=== PATIENT | male | born 1970 | race African-American/Black ===

== ENCOUNTER 2016-06-03 09:12 | Inpatient (IN) | payer OTHER ==
[2016-06-03 09:30] VITALS: BMI 25.7
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
[2016-06-03] MEDS ORDERED: P-EPHED 60MG/TRIPROLIDI 2.5MG TABLET PO PRN (12:11)
[2016-06-03] MEDS ORDERED: ACETAMINOPHEN 325 MG TABLET (FP) PO PRN (12:11)
[2016-06-03] MEDS ORDERED: hydrOXYzine PAMOATE 25 MG CAPSULE (FP) PO PRN (12:11)
[2016-06-03] MEDS ORDERED: LOPERAMIDE HCL 2 MG CAPSULE PO PRN (12:11)
[2016-06-03] MEDS ORDERED: MAGNESIUM CITRATE 300 ML BOTTLE PO PRN (12:11)
[2016-06-03] MEDS ORDERED: MENTHOL/PHENOL 1 EACH UD MM PRN (12:11)
[2016-06-03] MEDS ORDERED: MAG HYDROX/AL HYDROX/SIMETH 30 ML UNIT-DOSE CUP PO PRN (12:11)
[2016-06-03] MEDS ORDERED: chlordiazePOXIDE HCL 25 MG CAPSULE PO PRN (12:11)
[2016-06-03] MEDS ORDERED: MAGNESIUM HYDROX 2400MG/30ML ORAL SUSPENSION 30 ML CUP PO PRN (12:11)
[2016-06-03] MEDS ORDERED: guaiFENesin/D-METHORPHAN HB 10 ML UNIT-DOSE CUPS PO PRN (12:11)
[2016-06-03] MEDS ORDERED: diphenhydrAMINE HCL 50 MG CAPSULE PO PRN (12:11)
[2016-06-03] MEDS ORDERED: IBUPROFEN 400 MG TABLET (FP) PO PRN (12:11)
[2016-06-03] MEDS ORDERED: NAPROXEN 500 MG TABLET (FP) PO PRN (12:14)
[2016-06-03] MEDS ORDERED: chlordiazePOXIDE HCL 25 MG CAPSULE PO ONE (12:21)
[2016-06-03 16:05] LABS: URINE APPEARANCE CLEAR; URINE BLOOD NEGATIVE (NEGATIVE); URINE COLOR AMBER; URINE GLUCOSE (UA) NEGATIVE (NEGATIVE); URINE KETONE TRACE (NEGATIVE); URINE LEUK ESTERASE NEGATIVE (NEGATIVE); URINE NITRITE NEGATIVE (NEGATIVE); URINE UROBILINOGEN 4.0 E.U/dl E.U./dl (0.2-1.0)
[2016-06-03 16:14] LABS: URINE PROTEIN 1+ (NEGATIVE)
--- NOTE | 2016-06-03 16:33 | EKG ---
Test Reason : Blood Pressure : / mmHG Vent. Rate : 092 BPM Atrial Rate : 092 BPM P-R Int : 178 ms QRS Dur : 086 ms QT Int : 344 ms P-R-T Axes : 060 053 037 degrees QTc Int : 425 ms NORMAL SINUS RHYTHM MODERATE VOLTAGE CRITERIA FOR LVH, MAY BE NORMAL VARIANT BORDERLINE ECG NO PREVIOUS ECGS AVAILABLE Confirmed by KIA CHRISTIANSON, MENDEZ ([id number]) on 06/03/2016 4:33:14 PM Referred By: Misha Barbosa Confirmed By:MENDEZ ADAM MD
[2016-06-03 16:53] LABS: URINE BACTERIA RARE /hpf (NONE SEEN); URINE MUCUS RARE; URINE RBC 8 /hpf (0-3); URINE WBC <1 /hpf (3-5)
[2016-06-03] MEDS: chlordiazePOXIDE HCL 25 MG CAPSULE PO SCH ×2 (17:52→22:18)
[2016-06-03] MEDS ORDERED: NAPROXEN 500 MG TABLET (FP) PO SCH (22:00)
[2016-06-03] MEDS: NAPROXEN 500 MG TABLET (FP) PO PRN (22:18)
[2016-06-03] MEDS: THIAMINE HCL 100 MG TABLET (FP) PO SCH (22:18)
[2016-06-04] MEDS: chlordiazePOXIDE HCL 25 MG CAPSULE PO SCH ×4 (05:19→22:05)
[2016-06-04] MEDS: PRENATAL VITAMINS W/ FOLIC ACID TABLET (FP) PO SCH (10:05)
[2016-06-04 10:26] LABS: MCHC 32.4 g/dl (32.0-35.9); MEAN CELL VOLUME 89.5 fl (80-96); MEAN PLT VOLUME 11.2 fl (7.5-11.1); PLATELET COUNT 138 K/MM3 (134-434); RDW 15.8 % (11.9-15.9); WHITE BLOOD COUNT 8.9 K/mm3 (4.0-10.0)
[2016-06-04 11:14] LABS: ALBUMIN 4.4 g/dl (3.4-5.0); ALK PHOS 115 U/L (45-117); ANION GAP 11 (8-16); BILIRUBIN,TOTAL 0.7 mg/dL (0.2-1.0); CALCIUM 9.9 mg/dL (8.5-10.1); CO2 27 mmol/L (21-32); CREATININE 0.7 mg/dL (0.7-1.3); GLUCOSE,RANDOM 85 mg/dL (74-106); SGOT/AST 95 U/L (15-37); SGPT/ALT 74 U/L (12-78); TOT PROT 9.2 g/dl (6.4-8.2)
--- NOTE | 2016-06-04 11:23 | PN ---
S CIWA - CIWA Score Nausea/Vomitin-No Nausea/No Vomiting Muscle Tremors: 3 Anxiety: 4-Mod. Anxious/Guarded Agitation: 3 Paroxysmal Sweats: 3 Orientation: 0-Oriented Tacttile Disturbances: 0-None Auditory Disturbances: 0-None Visual Disturbances: 0-None Headache: 0-None Present CIWA-Ar Total Score: 13 BHS Progress Note (SOAP) Subjective: ANXIETY,TREMORS,INTERRUPTED SLEEP,SWEATING,RESTLESS. Objective: 06/04/16 11:22 Vital Signs - 8 hr 06/04/16 06/04/16 06/04/16 03:30 06:10 09:27 Temperature 97.6 F 98.9 F Pulse Rate 87 91 H Respiratory 18 18 18 Rate Blood Pressure 116/76 108/74 Laboratory Tests 06/03/16 06/04/16 06/04/16 14:00 06:00 06:00 WBC 8.9 RBC 4.61 Hgb 13.4 Hct 41.2 MCV 89.5 MCHC 32.4 RDW 15.8 Plt Count 138 MPV 11.2 H Sodium 137 Potassium 3.5 Chloride 99 Carbon Dioxide 27 Anion Gap 11 BUN 11 Creatinine 0.7 Creat Clearance w eGFR > 60 Random Glucose 85 Calcium 9.9 Total Bilirubin 0.7 AST 95 H ALT 74 Alkaline Phosphatase 115 Total Protein 9.2 H Albumin 4.4 Urine Color Lana Urine Appearance Clear Urine pH 5.0 Ur Specific [place] 1.030 Urine Protein 1+ H Urine Glucose (UA) Negative Urine Ketones Trace H Urine Blood Negative Urine Nitrite Negative Urine Bilirubin 2.0 Urine Urobilinogen 4.0 e.u/dl Ur Leukocyte Esterase Negative Urine RBC 8 Urine WBC <1 Ur Epithelial Cells Rare Urine Bacteria Rare Urine Mucus Rare LABS NOTED Assessment: 06/04/16 11:23 WITHDRAWAL SX. Plan: CONTINUE DETOX
[2016-06-04 12:34] LABS: SICKLE CELL SCREEN NEGATIVE (NEGATIVE)
[2016-06-04] MEDS: THIAMINE HCL 100 MG TABLET (FP) PO SCH (22:05)
[2016-06-05] MEDS: chlordiazePOXIDE HCL 25 MG CAPSULE PO SCH ×2 (06:15→10:07)
[2016-06-05] MEDS: PRENATAL VITAMINS W/ FOLIC ACID TABLET (FP) PO SCH (10:07)
--- NOTE | 2016-06-05 10:25 | PN ---
S CIWA - CIWA Score Nausea/Vomitin Muscle Tremors: 3 Anxiety: 2 Agitation: 2 Paroxysmal Sweats: 1-Minimal Palms Moist Orientation: 0-Oriented Tacttile Disturbances: 0-None Auditory Disturbances: 0-None Visual Disturbances: 0-None Headache: 2-Mild CIWA-Ar Total Score: 12 S Progress Note (SOAP) Objective: 06/05/16 10:25 Vital Signs - 24 hr 06/04/16 06/04/16 06/04/16 13:04 17:26 22:01 Temperature 96.7 F L 98.4 F 98.3 F Pulse Rate 89 83 85 Respiratory 20 18 19 Rate Blood Pressure 106/74 106/67 103/75 06/05/16 06/05/16 06/05/16 00:19 06:28 09:24 Temperature 98.3 F 98.1 F Pulse Rate 79 85 Respiratory 18 18 18 Rate Blood Pressure 105/77 109/72 Laboratory Tests 06/03/16 06/04/16 06/04/16 14:00 06:00 06:00 WBC 8.9 RBC 4.61 Hgb 13.4 Hct 41.2 MCV 89.5 MCHC 32.4 RDW 15.8 Plt Count 138 MPV 11.2 H Sickle Cell Screen Negative Sodium 137 Potassium 3.5 Chloride 99 Carbon Dioxide 27 Anion Gap 11 BUN 11 Creatinine 0.7 Creat Clearance w eGFR > 60 Random Glucose 85 Calcium 9.9 Total Bilirubin 0.7 AST 95 H ALT 74 Alkaline Phosphatase 115 Total Protein 9.2 H Albumin 4.4 Urine Color Lana Urine Appearance Clear Urine pH 5.0 Ur Specific [place] 1.030 Urine Protein 1+ H Urine Glucose (UA) Negative Urine Ketones Trace H Urine Blood Negative Urine Nitrite Negative Urine Bilirubin 2.0 Urine Urobilinogen 4.0 e.u/dl Ur Leukocyte Esterase Negative Urine RBC 8 Urine WBC <1 Ur Epithelial Cells Rare Urine Bacteria Rare Urine Mucus Rare RPR Titer 06/04/16 06:00 WBC RBC Hgb Hct MCV MCHC RDW Plt Count MPV Sickle Cell Screen Sodium Potassium Chloride Carbon Dioxide Anion Gap BUN Creatinine Creat Clearance w eGFR Random Glucose Calcium Total Bilirubin AST ALT Alkaline Phosphatase Total Protein Albumin Urine Color Urine Appearance Urine pH Ur Specific [place] Urine Protein Urine Glucose (UA) Urine Ketones Urine Blood Urine Nitrite Urine Bilirubin Urine Urobilinogen Ur Leukocyte Esterase Urine RBC Urine WBC Ur Epithelial Cells Urine Bacteria Urine Mucus RPR Titer Nonreactive Assessment: 06/05/16 10:25 ongoing withdrawal Plan: continue detox protocol
[2016-06-05] MEDS: chlordiazePOXIDE 5 MG CAPSULE PO SCH ×2 (17:14→22:06)
[2016-06-05] MEDS: NAPROXEN 500 MG TABLET (FP) PO PRN (17:17)
[2016-06-05] MEDS: THIAMINE HCL 100 MG TABLET (FP) PO SCH (22:06)
[2016-06-06] MEDS: chlordiazePOXIDE 5 MG CAPSULE PO SCH ×2 (05:24→10:08)
[2016-06-06] MEDS: PRENATAL VITAMINS W/ FOLIC ACID TABLET (FP) PO SCH (10:08)
--- NOTE | 2016-06-06 13:38 | PN ---
BHS Progress Note (SOAP) Subjective: Restless, anxious, nausea, interrupted sleep Objective: 06/06/16 13:35 Last Vital Signs Temp Pulse Resp BP Pulse Ox 96.4 F L 83 20 111/83 06/06/16 13:31 06/06/16 13:31 06/06/16 13:31 06/06/16 13:31 Laboratory Tests 06/03/16 06/04/16 06/04/16 14:00 06:00 06:00 WBC 8.9 RBC 4.61 Hgb 13.4 Hct 41.2 MCV 89.5 MCHC 32.4 RDW 15.8 Plt Count 138 MPV 11.2 H Sickle Cell Screen Negative Sodium 137 Potassium 3.5 Chloride 99 Carbon Dioxide 27 Anion Gap 11 BUN 11 Creatinine 0.7 Creat Clearance w eGFR > 60 Random Glucose 85 Calcium 9.9 Total Bilirubin 0.7 AST 95 H ALT 74 Alkaline Phosphatase 115 Total Protein 9.2 H Albumin 4.4 Urine Color Lana Urine Appearance Clear Urine pH 5.0 Ur Specific [place] 1.030 Urine Protein 1+ H Urine Glucose (UA) Negative Urine Ketones Trace H Urine Blood Negative Urine Nitrite Negative Urine Bilirubin 2.0 Urine Urobilinogen 4.0 e.u/dl Ur Leukocyte Esterase Negative Urine RBC 8 Urine WBC <1 Ur Epithelial Cells Rare Urine Bacteria Rare Urine Mucus Rare RPR Titer 06/04/16 06:00 WBC RBC Hgb Hct MCV MCHC RDW Plt Count MPV Sickle Cell Screen Sodium Potassium Chloride Carbon Dioxide Anion Gap BUN Creatinine Creat Clearance w eGFR Random Glucose Calcium Total Bilirubin AST ALT Alkaline Phosphatase Total Protein Albumin Urine Color Urine Appearance Urine pH Ur Specific [place] Urine Protein Urine Glucose (UA) Urine Ketones Urine Blood Urine Nitrite Urine Bilirubin Urine Urobilinogen Ur Leukocyte Esterase Urine RBC Urine WBC Ur Epithelial Cells Urine Bacteria Urine Mucus RPR Titer Nonreactive Labs noted: UA 1+ protein Assessment: 06/06/16 13:37 Withdrawal symptoms Noted with Proteinuria Plan: Continue detox Proteinuria: encouraged to drink more water, repeat UA
[2016-06-06] MEDS: chlordiazePOXIDE HCL 10 MG CAPSULE PO SCH ×2 (17:17→22:08)
[2016-06-06] MEDS: NAPROXEN 500 MG TABLET (FP) PO PRN (17:18)
[2016-06-06 17:38] LABS: URINE APPEARANCE CLEAR; URINE BILIRUBIN NEGATIVE (NEGATIVE); URINE COLOR LTYELLOW; URINE GLUCOSE (UA) NEGATIVE (NEGATIVE); URINE KETONE NEGATIVE (NEGATIVE); URINE LEUK ESTERASE NEGATIVE (NEGATIVE); URINE NITRITE NEGATIVE (NEGATIVE); URINE PROTEIN NEGATIVE (NEGATIVE); URINE UROBILINOGEN NEGATIVE E.U./dl (0.2-1.0)
[2016-06-06 17:39] LABS: URINE BLOOD 1+ (NEGATIVE)
[2016-06-06 17:45] LABS: URINE MUCUS RARE; URINE RBC 4 /hpf (0-3); URINE WBC <1 /hpf (3-5)
[2016-06-06] MEDS: THIAMINE HCL 100 MG TABLET (FP) PO SCH (22:08)
[2016-06-07] MEDS: chlordiazePOXIDE HCL 10 MG CAPSULE PO SCH (05:33)
[2016-06-07] MEDS: NAPROXEN 500 MG TABLET (FP) PO PRN (05:34)
[2016-06-07 06:34] VITALS: BP 109/79; PULSE 77; TEMP 97.6
[2016-06-07] MEDS: PRENATAL VITAMINS W/ FOLIC ACID TABLET (FP) PO SCH (09:13)
--- NOTE | 2016-06-07 09:55 | DS ---
[facility] Summary Admission Date: 06/03/16 Discharge Date: 06/07/16 - History Present History: Alcohol Dependence Pertinent Past History: Denies - Physical Exam Results Vital Signs: Vital Signs Temperature 97.6 F 06/07/16 06:33 Pulse Rate 77 06/07/16 06:33 Respiratory Rate 16 06/07/16 06:33 Blood Pressure 109/79 06/07/16 06:33 O2 Sat by Pulse Oximetry (%) Pertinent Admission Physical Exam Findings: Withdrawal Symptoms Laboratory Last Values WBC 8.9 K/mm3 (4.0-10.0) 06/04/16 06:00 RBC 4.61 M/mm3 (4.00-5.60) 06/04/16 06:00 Hgb 13.4 GM/dL (11.7-16.9) 06/04/16 06:00 Hct 41.2 % (35.4-49) 06/04/16 06:00 MCV 89.5 fl (80-96) 06/04/16 06:00 MCHC 32.4 g/dl (32.0-35.9) 06/04/16 06:00 RDW 15.8 % (11.9-15.9) 06/04/16 06:00 Plt Count 138 K/MM3 (134-434) 06/04/16 06:00 MPV 11.2 fl (7.5-11.1) H 06/04/16 06:00 Sickle Cell Screen Negative (NEGATIVE) 06/04/16 06:00 Sodium 137 mmol/L (136-145) 06/04/16 06:00 Potassium 3.5 mmol/L (3.5-5.1) 06/04/16 06:00 Chloride 99 mmol/L (98-107) 06/04/16 06:00 Carbon Dioxide 27 mmol/L (21-32) 06/04/16 06:00 Anion Gap 11 (8-16) 06/04/16 06:00 BUN 11 mg/dL (7-18) 06/04/16 06:00 Creatinine 0.7 mg/dL (0.7-1.3) 06/04/16 06:00 Creat Clearance w eGFR > 60 (>60) 06/04/16 06:00 Random Glucose 85 mg/dL (74-106) 06/04/16 06:00 Calcium 9.9 mg/dL (8.5-10.1) 06/04/16 06:00 Total Bilirubin 0.7 mg/dL (0.2-1.0) 06/04/16 06:00 AST 95 U/L (15-37) H 06/04/16 06:00 ALT 74 U/L (12-78) 06/04/16 06:00 Alkaline Phosphatase 115 U/L (45-117) 06/04/16 06:00 Total Protein 9.2 g/dl (6.4-8.2) H 06/04/16 06:00 Albumin 4.4 g/dl (3.4-5.0) 06/04/16 06:00 Urine Color [place] 06/06/16 11:00 Urine Appearance Clear 06/06/16 11:00 Urine pH 6.0 (5.0-8.0) 06/06/16 11:00 Ur Specific [place] 1.017 (1.001-1.035) 06/06/16 11:00 Urine Protein Negative (NEGATIVE) 06/06/16 11:00 Urine Glucose (UA) Negative (NEGATIVE) 06/06/16 11:00 Urine Ketones Negative (NEGATIVE) 06/06/16 11:00 Urine Blood 1+ (NEGATIVE) H 06/06/16 11:00 Urine Nitrite Negative (NEGATIVE) 06/06/16 11:00 Urine Bilirubin Negative (NEGATIVE) 06/06/16 11:00 Urine Urobilinogen Negative E.U./dl (0.2-1.0) 06/06/16 11:00 Ur Leukocyte Esterase Negative (NEGATIVE) 06/06/16 11:00 Urine RBC 4 /hpf (0-3) 06/06/16 11:00 Urine WBC <1 /hpf (3-5) 06/06/16 11:00 Ur Epithelial Cells Rare /hpf (FEW) 06/03/16 14:00 Urine Bacteria Rare /hpf (NONE SEEN) 06/03/16 14:00 Urine Mucus Rare 06/06/16 11:00 RPR Titer Nonreactive (NONREACTIVE) 06/04/16 06:00 labs noted - Treatment Hospital Course: Detox Protocol Followed, Detoxed Safely, Responded well, Discharged Condition Good Patient has Accepted a Rehab Referral to: Declined - Medication Discharge Medications: Ambulatory Orders Naproxen [Naprosyn -] 500 mg PO PRN PRN 06/03/16 - Diagnosis (1) Alcohol dependence with uncomplicated withdrawal Current Visit: Yes Status: Acute - AMA Did Patient Leave Against Medical Advice: No
== END 2016-06-07 09:32 | disposition home or self-care (01) | DRG 897 ==
LOC: YASAS 09:12 → Y3N 11:38
PROVIDERS: ADMIT Internal Medicine; ATTEND Internal Medicine
PROC: HZ2ZZZZ Detoxification Services for Substance Abuse Treatment (ICD-10-PCS; principal; 2016-06-03)
DX: F10.230 Alcohol dependence with withdrawal, uncomplicated (principal); R80.9 Proteinuria, unspecified; R26.2 Difficulty in walking, not elsewhere classified
CPT/HCPCS: 36415; 71020-TC; 80053; 81003; 81015; 85027; 85660; 86593; 93005; 93010

== ENCOUNTER 2020-05-27 12:18 | Inpatient (IN) | payer OTHER ==
[2020-05-27 14:38] VITALS: BMI 25.9
[2020-05-27] MEDS ORDERED: ACETAMINOPHEN 325 MG TABLET (FP) PO PRN ×2 (14:38)
[2020-05-27] MEDS ORDERED: MAGNESIUM CITRATE 300 ML BOTTLE PO PRN (14:38)
[2020-05-27] MEDS ORDERED: NAPROXEN 500 MG TABLET PO PRN (14:38)
[2020-05-27] MEDS ORDERED: MAGNESIUM HYDROX 2400MG/30ML ORAL SUSPENSION 30 ML CUP PO PRN (14:38)
[2020-05-27] MEDS ORDERED: NICOTINE POLACRILEX 2 MG GUM BUC PRN (14:38)
[2020-05-27] MEDS ORDERED: IBUPROFEN 400 MG TABLET (FP) PO PRN (14:38)
[2020-05-27] MEDS ORDERED: METHOCARBAMOL 500 MG TABLET PO PRN (14:38)
[2020-05-27] MEDS ORDERED: ONDANSETRON *ODT* 4 MG TABLET SL PRN (14:38)
[2020-05-27] MEDS ORDERED: MENTHOL/PHENOL 1 EACH UD MM PRN (14:38)
[2020-05-27] MEDS ORDERED: BISMUTH SUBSALICYLATE 262 MG/15 ML BTL PO PRN (14:38)
[2020-05-27] MEDS ORDERED: chlordiazePOXIDE HCL 25 MG CAPSULE PO PRN (14:38)
[2020-05-27] MEDS ORDERED: MAG HYDROX/AL HYDROX/SIMETH 30 ML UNIT-DOSE CUP PO PRN (14:38)
[2020-05-27] MEDS: chlordiazePOXIDE HCL 25 MG CAPSULE PO SCH ×2 (17:37→22:19)
[2020-05-27] MEDS: hydrOXYzine PAMOATE 25 MG CAPSULE (FP) PO SCH ×2 (17:37→22:19)
[2020-05-27 19:26] LABS: HEMATOCRIT 43.4 % (35.4-49); HEMOGLOBIN 14.6 GM/dL (11.7-16.9); MCH 31.1 pg (25.7-33.7); MCHC 33.6 g/dl (32.0-35.9); MEAN CELL VOLUME 92.8 fl (80-96); MEAN PLT VOLUME 8.9 fl (7.5-11.1); PLATELET COUNT 109 K/MM3 (134-434); RBC 4.68 M/mm3 (4.00-5.60); RDW 13.8 % (11.9-15.9)
[2020-05-27 19:32] LABS: ALBUMIN 4.6 g/dl (3.4-5.0); CALCIUM 9.1 mg/dL (8.5-10.1)
[2020-05-27 19:33] LABS: BLOOD UREA NITROGEN 5.8 mg/dL (7-18)
[2020-05-27 19:36] LABS: CREATININE 0.8 mg/dL (0.55-1.3)
[2020-05-27 19:37] LABS: BILIRUBIN,TOTAL 1.4 mg/dL (0.2-1); TOT PROT 8.6 g/dl (6.4-8.2)
[2020-05-27 20:25] LABS: HIV INTERPRETATION NEGATIVE (NEGATIVE)
[2020-05-27] MEDS: MELATONIN 5 MG TABLETS PO SCH (22:19)
[2020-05-27] MEDS: THIAMINE HCL 100 MG TABLET (FP) PO SCH (22:19)
[2020-05-28] MEDS: chlordiazePOXIDE HCL 25 MG CAPSULE PO SCH ×4 (05:40→22:21)
[2020-05-28] MEDS: hydrOXYzine PAMOATE 25 MG CAPSULE (FP) PO SCH ×5 (05:40→22:21)
[2020-05-28] MEDS ORDERED: POTASSIUM CHLORIDE ORAL LIQUID 20 MEQ/15 ML PO ONE (09:00)
[2020-05-28] MEDS ORDERED: NAPROXEN 500 MG TABLET PO PRN (09:09)
[2020-05-28] MEDS: PRENATAL VITAMINS W/ FOLIC ACID TABLET (FP) PO SCH (10:11)
[2020-05-28] MEDS: POTASSIUM CHLORIDE ORAL LIQUID 20 MEQ/15 ML PO SCH ×2 (10:11→22:21)
[2020-05-28] MEDS: THIAMINE HCL 100 MG TABLET (FP) PO SCH (22:21)
[2020-05-28] MEDS: MELATONIN 5 MG TABLETS PO SCH (22:21)
[2020-05-29] MEDS: hydrOXYzine PAMOATE 25 MG CAPSULE (FP) PO SCH ×5 (05:43→22:14)
[2020-05-29] MEDS: chlordiazePOXIDE HCL 25 MG CAPSULE PO SCH ×4 (05:43→22:14)
[2020-05-29] MEDS: POTASSIUM CHLORIDE ORAL LIQUID 20 MEQ/15 ML PO SCH ×2 (10:10→22:14)
[2020-05-29] MEDS: PRENATAL VITAMINS W/ FOLIC ACID TABLET (FP) PO SCH (10:10)
[2020-05-29 11:25] LABS: ALBUMIN 3.8 g/dl (3.4-5.0); BLOOD UREA NITROGEN 11.6 mg/dL (7-18); CALCIUM 9.6 mg/dL (8.5-10.1)
[2020-05-29 11:28] LABS: CREATININE 0.7 mg/dL (0.55-1.3)
[2020-05-29] MEDS: MELATONIN 5 MG TABLETS PO SCH (22:14)
[2020-05-29] MEDS: THIAMINE HCL 100 MG TABLET (FP) PO SCH (22:15)
[2020-05-30] MEDS ORDERED: chlordiazePOXIDE HCL 10 MG CAPSULE PO PRN
[2020-05-30] MEDS: hydrOXYzine PAMOATE 25 MG CAPSULE (FP) PO SCH ×5 (05:30→22:07)
[2020-05-30] MEDS: chlordiazePOXIDE HCL 10 MG CAPSULE PO SCH ×4 (05:30→22:08)
[2020-05-30] MEDS: PRENATAL VITAMINS W/ FOLIC ACID TABLET (FP) PO SCH (10:02)
[2020-05-30] MEDS: POTASSIUM CHLORIDE ORAL LIQUID 20 MEQ/15 ML PO SCH ×2 (10:02→22:08)
[2020-05-30] MEDS: THIAMINE HCL 100 MG TABLET (FP) PO SCH (22:08)
[2020-05-30] MEDS: MELATONIN 5 MG TABLETS PO SCH (22:08)
[2020-05-31] MEDS ORDERED: chlordiazePOXIDE HCL 10 MG CAPSULE PO SCH (05:00)
[2020-05-31] MEDS: hydrOXYzine PAMOATE 25 MG CAPSULE (FP) PO SCH (05:21)
[2020-05-31 06:20] VITALS: BP 129/83; PULSE 88; TEMP 97.7
[2020-06-01] MEDS ORDERED: chlordiazePOXIDE HCL 10 MG CAPSULE PO ONE (05:00)
== END 2020-05-31 10:15 | disposition home or self-care (01) | DRG 897 ==
LOC: YASAS 12:18 → Y3N 14:30
PROVIDERS: ADMIT Allergy & Immunology; ATTEND Allergy & Immunology
PROC: HZ2ZZZZ Detoxification Services for Substance Abuse Treatment (ICD-10-PCS; principal; 2020-05-27)
DX: F10.230 Alcohol dependence with withdrawal, uncomplicated (principal); Z96.649 Presence of unspecified artificial hip joint; Z96.653 Presence of artificial knee joint, bilateral; Z96.661 Presence of right artificial ankle joint; Z96.662 Presence of left artificial ankle joint
CPT/HCPCS: 36415; 80053; 82947; 84132; 85027; 86780; 87389; 93005; 93010; C9803; U0003